=== PATIENT | male | born 1995 | race Caucasian/White ===

== ENCOUNTER 2023-10-02 04:37 | Emergency (ER) | payer SELFPAY ==
[~2023-10-02] VITALS: Ht 167.6 cm; Wt 81.6 kg
[2023-10-02 04:45] VITALS: BP 155/91; PULSE 85; RESP 16; TEMP 98; O2SAT 96
[2023-10-02 05:20] VITALS: BP 155/91; PULSE 85; RESP 16; TEMP 98; O2SAT 96
== END 2023-10-02 05:20 | disposition home or self-care (01) ==
LOC: MED 04:37
DX: F19.10 Other psychoactive substance abuse, uncomplicated (principal); Z88.0 Allergy status to penicillin; V43.52XA Car driver injured in collision with other type car in traffic accident, initial encounter; Y93.89 Activity, other specified; Y92.410 Unspecified street and highway as the place of occurrence of the external cause; Y99.8 Other external cause status
CPT/HCPCS: 99283